=== PATIENT | male | born 1985 ===

== ENCOUNTER 2021-11-11 10:43 | Outpatient (CLI) | payer OTHER | END 2021-11-11 10:44 | disposition home or self-care (01) | LOC: MRI 10:43 | DX: M54.6 Pain in thoracic spine (principal) | CPT/HCPCS: 72158 ==

== ENCOUNTER 2024-08-21 10:02 | Outpatient (CLI) | payer OTHER | END 2024-08-21 10:07 | disposition home or self-care (01) | LOC: SONOGRAMA 10:02 | PROVIDERS: ATTEND Urology | DX: M25.532 Pain in left wrist (principal) ==